=== PATIENT | female | born 1930 | race Hispanic/Latino ===

== ENCOUNTER 2018-12-20 15:53 | Inpatient (IN) | payer MEDICARE, BC ==
[2018-12-20 16:10] VITALS: BMI 32.3
--- NOTE | 2018-12-20 16:16 | ED PDOC ---
Arrival/HPI - General Time Seen by Provider: 12/20/18 15:58 Historian: Patient - History of Present Illness Narrative History of Present Illness (Text): 12/20/18 16:13 88 year old female, whose past medical history includes htn and leukocytosis presents to the ED with left sided chest pain, onset approximately 1pm today, onset while at rest, non radiating. Patient states she not experienced this pain before. Pain associated with nausea and shortness of breath, no dizziness, no diaphoresis, +pleuritic and not superficial to touch. Patient states she was diagnosed with a high wbc count approximately 2 weeks ago, not given a specific diagnosis but blood work being monitored. She denies fevers, chills, headache, cough, abdominal pain, vomiting, diarrhea, back pain, neck pain, or any other complaint. Time/Duration: 1-3 hours Symptom Onset: Gradual Symptom Course: Unchanged Activities at Onset: Light Context: Home Past Medical History - Provider Review Nursing Documentation Reviewed: Yes - Infectious Disease Hx of Infectious Diseases: None - Tetanus Immunization Tetanus Immunization: Unknown - Cardiac Hx Hypertension: Yes (HIGH CHOLESTEROL) - Pulmonary Hx Asthma: Yes - Hematological/Oncological Hx Blood Disorders: Yes (CLL) - Musculoskeletal/Rheumatological Hx Falls: No - Genitourinary/Gynecological Hx Urinary Tract Infection: Yes - Psychiatric Hx Anxiety: No Hx Depression: No Hx Substance Use: No - Past Surgical History Past Surgical History: No Previous - Anesthesia Hx Anesthesia: No - Suicidal Assessment Feels Threatened In Home Enviroment: No Family/Social History - Physician Review Nursing Documentation Reviewed: Yes Family/Social History: No Known Family HX Smoking Status: Former Smoker Hx Alcohol Use: No Hx Substance Use: No Hx Substance Use Treatment: No Allergies/Home Meds Allergies/Adverse Reactions: Allergies NSAIDS (Non-Steroidal Anti-Inflamma Adverse Reaction (Verified 12/20/18 16:20) VOMITING Home Medications: Home Meds Medication Instructions Recorded Confirmed Losartan [Cozaar] 50 mg PO DAILY 12/22/18 12/22/18 amLODIPine [Norvasc] 5 mg PO DAILY 12/22/18 12/22/18 Review of Systems - Physician Review All systems were reviewed & negative as marked: Yes - Review of Systems Constitutional: absent: Fevers Respiratory: SOB. absent: Cough Cardiovascular: Chest Pain Gastrointestinal: Nausea. absent: Abdominal Pain, Diarrhea, Vomiting Genitourinary Female: absent: Dysuria Musculoskeletal: absent: Back Pain, Neck Pain Skin: absent: Rash Neurological: absent: Headache, Dizziness Endocrine: Diaphoresis Physical Exam - Physical Exam Narrative Physical Exam (Text): 12/20/18 16:22 Gen: VS reviewed, alert, well developed, well nourished, nontoxic, mild distress. ENT: normal pharynx. Eye: EOMI, PERRL. Neck: no JVD, supple, no adenopathy. CV: regular rate, regular rhythm, no rubs, no murmur, no gallops, S1, S2, pulses equal and strong. Pulm: no distress, clear to auscultation, no wheeze, no rhonchi, breath sounds equal, no rales. Abd: soft, nontender, no guarding, no rebound, no rigidity, normal bowel sounds. Ext: no edema. Skin: good color, no rash, no cyanosis. Psych: responds appropriately to questions, normal affect. Neuro: oriented x 3, CN2-12 intact grossly, motor intact, sensation intact. Vital Signs Reviewed: Yes Temperature: Afebrile Blood Pressure: Hypertensive Pulse: Tachycardic Respiratory Rate: Normal Appearance: Positive for: Well-Appearing, Non-Toxic, Comfortable Pain Distress: None Mental Status: Positive for: Alert and Oriented X 3 Medical Decision Making ED Course and Treatment: 12/20/18 16:16 Impression: 88 year old female who presents to the emergency department complaining of left sided chest pain. Plan: -- BBK -- VBG -- Labs -- Reassess and disposition Prior Visits: Notes and results from previous visits were reviewed. Progress Notes: 12/20/18 16:16 Patient seen for left lower chest pain, pleuritic in nature, will work up for ACS and PE. 12/20/18 19:15 lipase elevated, workup trajectory changed towards pancreatitis. patient has a hx of leukemia, not currently being treated, seasoner hand is dr. cunningham 12/20/18 19:[address] carter, pending CT result, final disposition. - Lab Interpretations I have reviewed the lab results: Yes - EKG Interpretation EKG Interpretation (Text): 12/20/18 16:24 EKG done at 16:01, reviewed by me, shows: NSR at 100 bpm with normal QRS, normal axis, no acute ST/T wave abnormality Interpreted by ED Physician: Yes Type: 12 lead EKG - Scribe Statement The provider has reviewed the documentation as recorded by the Cuauhtemoc Mack Provider Scribe Attestation: All medical record entries made by the Bellibe were at my direction and personally dictated by me. I have reviewed the chart and agree that the record accurately reflects my personal performance of the history, physical exam, medical decision making, and the department course for this patient. I have also personally directed, reviewed, and agree with the discharge instructions and disposition. Disposition/Present on Arrival - Present on Arrival Any Indicators Present on Arrival: No History of DVT/PE: No History of Uncontrolled Diabetes: No Urinary Catheter: No History Surgical Site Infection Following: None - Disposition Have Diagnosis and Disposition been Completed?: Yes Diagnosis: Pancreatitis, Gallstone Disposition: HOSPITALIZED Disposition Time: 18:48 (not actual) Condition: STABLE
[2018-12-20 18:34] LABS: ALB/GLOB RATIO 1.5 (1.1-1.8); ALT/SGPT 28 U/L (7-56); AST/SGOT 97 U/L (14-36); BLOOD UREA NITROGEN 23 mg/dL (7-21); CALCIUM 9.2 mg/dL (8.4-10.5); GFR NON-AFRICAN AMERICAN > 60; HDL CHOLESTEROL 40 mg/dL (29-60)
[2018-12-20 18:45] LABS: LDL CHOLESTEROL 149 mg/dL (0-129)
[2018-12-20 18:48] LABS: TROPONIN I < 0.01 ng/mL
[2018-12-20] MEDS ORDERED: Iohexol 350 MG/100 ML VIAL ONE (18:48)
[2018-12-20 18:49] LABS: LIPASE 12861 U/L (23-300)
[2018-12-20 18:52] LABS: VENOUS BLOOD GAS BASE EXCESS 0.1 mmol/L (0.0-2.0); VENOUS BLOOD GAS PO2 252 mm/Hg (30-55); VENOUS BLOOD PH 7.44 (7.32-7.43)
[2018-12-20 19:04] LABS: INR 1.05; PARTIAL THROMBOPLASTIN TIME 27.7 Seconds (26.9-38.3); PROTHROMBIN TIME 11.6 SECONDS (9.4-12.5)
--- NOTE | 2018-12-20 19:19 | ED PDOC ---
Physical Exam Vital Signs Temp Pulse Resp BP Pulse Ox 12/20/18 18:36 95 H 20 143/66 98 12/20/18 15:53 98 F 100 H 18 151/73 H 98 Medical Decision Making ED Course and Treatment: 12/20/18 19:[address] Rutledge with patient pending CT a/p and reevaluation. Brief HPI:The patient originally presented with left sided chest pain, but was discovered to have an elevated lipase with concern for pancreatitis. She was recently diagnosed with leukemia, but has not started chemotherapy as of late. Physicians: Dr. Montiel(PCP), Dr. Breen(oncologist) 12/20/18 20:30 Patient returned from US with patient denying any somatic complaints at this time. She and her daughter understand she will be staying in the hospital for further evaluation. 12/20/18 20:37 Spoke to histotechnician who states he visualized gallstones as well as a pancreatic cyst on abdominal US. Pending CT results. 12/20/18 21:23 CT scan reveals gallstones and pancreatic lymph node noted on CT with no evidence of inflammation about the pancreas. Results discussed with patient and her daughter who is amenable to staying in the hospital for further observation. Spoke to medical reviewer who is aware of patient and will go evaluate patient. Awaiting call back from Dr. Cooley(house staff). 12/20/18 21:[address] Cooley who will evaluate patient. - Lab Interpretations Lab Results: pO2 252 mm/Hg (30-55) H 12/20/18 18:40 VBG pH 7.44 (7.32-7.43) H 12/20/18 18:40 VBG pCO2 35.0 (40-60) L 12/20/18 18:40 VBG HCO3 23.8 mmol/l (21-28) 12/20/18 18:40 VBG Total CO2 24.9 mmol.L (22-28) 12/20/18 18:40 VBG O2 Sat (Calc) 100.3 % (40-65) H 12/20/18 18:40 VBG Base Excess 0.1 mmol/L (0.0-2.0) 12/20/18 18:40 VBG Potassium 4.7 mmol/L (3.6-5.2) 12/20/18 18:40 Sodium 142.0 mmol/L (132-148) 12/20/18 18:40 Chloride 110.0 mmol/L (98-107) H 12/20/18 18:40 Glucose 134 mg/dl (65-105) H 12/20/18 18:40 Lactate 1.0 mmol/L (0.7-2.1) 12/20/18 18:40 FiO2 21.0 % 12/20/18 18:40 PT 11.6 SECONDS (9.4-12.5) 12/20/18 18:40 INR 1.05 12/20/18 18:40 APTT 27.7 Seconds (26.9-38.3) 12/20/18 18:40 Troponin I < 0.01 ng/mL 12/20/18 18:00 Total Bilirubin 1.2 mg/dL (0.2-1.3) 12/20/18 18:00 AST 97 U/L (14-36) H 12/20/18 18:00 ALT 28 U/L (7-56) 12/20/18 18:00 Alkaline Phosphatase 119 U/L (38-126) 12/20/18 18:00 Total Protein 6.7 g/dL (5.8-8.3) 12/20/18 18:00 Albumin 4.0 g/dL (3.0-4.8) 12/20/18 18:00 Globulin 2.7 gm/dL 12/20/18 18:00 Albumin/Globulin Ratio 1.5 (1.1-1.8) 12/20/18 18:00 Lipase 86089 U/L (23-300) H 12/20/18 18:00 12/20/18 18:00 Lab Results 12/20/18 18:40: pO2 252 H, VBG pH 7.44 H, VBG pCO2 35.0 L, VBG HCO3 23.8, VBG Total CO2 24.9, VBG O2 Sat (Calc) 100.3 H, VBG Base Excess 0.1, VBG Potassium 4.7, Glucose 134 H, Lactate 1.0, FiO2 21.0, Sodium 142.0, Chloride 110.0 H, Venous Blood Potassium 4.7 12/20/18 18:40: PT 11.6, INR 1.05, APTT 27.7 12/20/18 18:00: Sodium 141, Potassium 5.4 H, Chloride 109 H, Carbon Dioxide 27, Anion Gap 11, BUN 23 H, Creatinine 0.8, Est GFR ( Amer) > 60, Est GFR (Non-Af Amer) > 60, Random Glucose 133 H, Calcium 9.2, Total Bilirubin 1.2, AST 97 H, ALT 28, Alkaline Phosphatase 119, Troponin I < 0.01, Total Protein 6.7, Albumin 4.0, Globulin 2.7, Albumin/Globulin Ratio 1.5, Triglycerides 125, Cholesterol 225 H, LDL Cholesterol Direct 149 H, HDL Cholesterol 40, Lipase 48882 H I have reviewed the lab results: Yes - RAD Interpretation Narrative RAD Interpretations (Text): US Abdomen Complete Electronically signed on Dec 20, 2018 8:37:08 PM EST by: Chris Torres M.D. Impression 1. Fatty liver. 2. Gallstones. 3. Enlarged peripancreatic lymph node. Follow up with CT, pancreatic protocol is recommended. Radiology Orders: 12/20/18 19:10 ABDOMEN & PELVIS [ABD & PELVIS IV CONTRAST ONLY] [CT] Stat 12/20/18 19:12 GALLBLADDER & PANCREAS [US] Stat Hide Paster: Radiologist Disposition/Present on Arrival - Present on Arrival Any Indicators Present on Arrival: No History of DVT/PE: No History of Uncontrolled Diabetes: No Urinary Catheter: No History of Decub. Ulcer: No History Surgical Site Infection Following: None - Disposition Have Diagnosis and Disposition been Completed?: Yes Diagnosis: Pancreatitis, Gallstone Disposition Time: 21:58 Patient Plan: Admission Patient Problems: Current Active Problems Problem Status Onset Pancreatitis Acute Gallstone Acute Condition: STABLE
[2018-12-20 19:31] LABS: BASO # 0.28 K/mm3 (0.0-2.0); BASO % 0.2 % (0.0-3.0); EOS # 0.3 (0.0-0.7); EOS % 0.3 % (1.5-5.0); HEMOGLOBIN 12.5 g/dL (12.0-16.0); LYMPH # 110.2 (1.2-3.4); LYMPH % 93.9 % (22.0-35.0); MEAN CELL VOLUME 89.1 fl (80.0-105.0); MEAN CORPUSCULAR HEMOGLOBIN 27.7 pg (25.0-35.0); MEAN CORPUSCULAR HGB CONC 31.1 g/dl (31.0-37.0); MEAN PLATELET VOLUME 11.1 fl (7.0-11.0); MONO # 1.5 (0.1-0.6); MONO % 1.3 % (1.0-6.0); PLATELET COUNT 126 10^3/uL (120.0-450.0); RBC 4.51 10^6/uL (3.5-6.1); RED CELL DISTRIBUTION WIDTH 14.8 % (11.5-14.5)
[2018-12-20 19:48] LABS: WHITE BLOOD COUNT 117.3 10^3/uL (4.5-11.0)
[2018-12-20 19:51] LABS: ATYPICAL LYMPHOCYTE 2 % (0.0-0.0); LYMPHOCYTE 86 % (22.0-35.0); MONOCYTE 5 % (1.0-6.0); NEUTROPHIL 7 % (50.0-70.0)
[2018-12-20 19:52] LABS: PLATELET ESTIMATE NORMAL (NORMAL); SMUDGE CELLS PRESENT
[2018-12-20] MEDS ORDERED: Sodium Chloride 0.9% 1,000 ML IV STA (20:31)
[2018-12-20] MEDS ORDERED: Insulin Regular 1 UNITS/0.01 ML ML SC STA (21:08)
[2018-12-20] MEDS ORDERED: Dextrose 50% SYRINGE Inj (50 ml) IVP STA (21:08)
[2018-12-20] MEDS ORDERED: Albuterol-Ipratrop 3 mg / 0.5 (3 ml) UD IH PRN (21:13)
--- NOTE | 2018-12-20 21:13 | CP.PCM.HP ---
History of Present Illness - History of Present Illness History of Present Illness: Juanjose Dietz, PGY1 H&P for Dr. Cooley cc: "left sided chest pain" Patient is a 88 year old female with PMHx HTN, CLL (recently diagnosed, not on chemo), COPD, Depression, HLD who presented to the ED with left sided chest pain at 1 pm today. In the ED, Vitals: Temp 98, HR 100, BP 151/73, RR 18, SaO2 98% (room air). Medical team evaluated the patient. She has left sided chest pain underneath her breast with radiation to the back. She says that the pain started at rest, she was not exerting herself. She also had associated shortness of breath. However, upon arriving to the ED she says that her chest pain and shortness of breath has improved. Denies headache, fever, chills, nausea, vomiting, diarrhea, vision changes, bowel/bladder changes, numbness/tingling of the extremities. She said that she was recently diagnosed with CLL but is not on any chemotherapy. She denies any cardiac history. She has had a stress test in the past that was normal. Denies ever having an echocardiogram or a cardiac cath done before. She has no prior history of pancreatitis. A full 12 point ROS was conducted and unremarkable except as stated above. PMD: Dr. Montiel(PCP) Heme/Onc: Dr. Breen Ordnance Equipment Worker: Dr. Santo PMHx: HTN, CLL (recently diagnosed, not on chemo), COPD, Depression, HLD PSHx: none Meds: see MAR Allergies: NSAIDs SocialHx: former smoker for 20 years. Denies EtOH use. Denies illicit drug use. FamHx: brother has hx of lung cancer (). Sister has hx of ALS (). Present on Admission - Present on Admission Any Indicators Present on Admission: No Review of Systems - Review of Systems All systems: reviewed and no additional remarkable complaints except (as per HPI) Past Patient History - Infectious Disease Hx of Infectious Diseases: None - Tetanus Immunizations Tetanus Immunization: Unknown - Past Social History Smoking Status: Former Smoker - CARDIAC Hx Hypertension: Yes (HIGH CHOLESTEROL) - PULMONARY Hx Asthma: Yes - HEMATOLOGICAL/ONCOLOGICAL Hx Blood Disorders: Yes (CLL) - MUSCULOSKELETAL/RHEUMATOLOGICAL Hx Falls: No - GENITOURINARY/GYNECOLOGICAL Hx Urinary Tract Infection: Yes - PSYCHIATRIC Hx Anxiety: No Hx Depression: No Hx Substance Use: No - ANESTHESIA Hx Anesthesia: No Meds Allergies/Adverse Reactions: Allergies Allergy/AdvReac Type Severity Reaction Status Date / Time NSAIDS (Non-Steroidal AdvReac VOMITING Verified 12/20/18 16:20 Anti-Inflamma Physical Exam - Constitutional Appears: No Acute Distress Additional comments: No jaundice - Head Exam Head Exam: ATRAUMATIC, NORMAL INSPECTION, NORMOCEPHALIC - Eye Exam Eye Exam: EOMI, Normal appearance. absent: Scleral icterus Pupil Exam: NORMAL ACCOMODATION, PERRL - ENT Exam ENT Exam: Mucous Membranes Moist - Respiratory Exam Respiratory Exam: Clear to Auscultation Bilateral. absent: Accessory Muscle Use, Chest Wall Tenderness, Rales, Rhonchi, Wheezes, Respiratory Distress - Cardiovascular Exam Cardiovascular Exam: RRR, +S1, +S2 - GI/Abdominal Exam GI & Abdominal Exam: Normal Bowel Sounds, Organomegaly (Splenomegaly appreciated ), Soft. absent: Guarding, Rebound, Rigid, Tenderness - Extremities Exam Extremities exam: Positive for: full ROM, normal capillary refill, normal inspection, pedal pulses present. Negative for: calf tenderness, joint swelling, pedal edema, tenderness - Neurological Exam Neurological exam: Alert, CN II-XII Intact, Normal Gait, Oriented x3, Reflexes Normal - Psychiatric Exam Psychiatric exam: Normal Affect, Normal Mood - Skin Skin Exam: Dry, Intact, Normal Color, Warm Results - Vital Signs Recent Vital Signs: Last Vital Signs Temp 98 F 12/20/18 15:53 Pulse 95 H 12/20/18 18:36 Resp 20 12/20/18 18:36 BP 143/66 12/20/18 18:36 Pulse Ox 98 12/20/18 18:36 - Labs Result Diagrams: 12/20/18 19:00 12/20/18 18:00 Labs: Laboratory Results - last 24 hr 12/20/18 12/20/18 12/20/18 18:00 18:40 18:40 WBC RBC Hgb Hct MCV MCH MCHC RDW Plt Count MPV Neut % (Auto) Lymph % (Auto) [place] % (Auto) Eos % (Auto) Baso % (Auto) Lymph # (Auto) [place] # (Auto) Eos # (Auto) Baso # (Auto) Absolute Neuts (auto) Neutrophils % (Manual) Lymphocytes % (Manual) Atypical Lymphs % Monocytes % (Manual) Smudge Cells Platelet Evaluation PT 11.6 INR 1.05 APTT 27.7 pO2 252 H VBG pH 7.44 H VBG pCO2 35.0 L VBG HCO3 23.8 VBG Total CO2 24.9 VBG O2 Sat (Calc) 100.3 H VBG Base Excess 0.1 VBG Potassium 4.7 Glucose 134 H Lactate 1.0 FiO2 21.0 Sodium 141 142.0 Potassium 5.4 H Chloride 109 H 110.0 H Carbon Dioxide 27 Anion Gap 11 BUN 23 H Creatinine 0.8 Est GFR ( Amer) > 60 Est GFR (Non-Af Amer) > 60 Random Glucose 133 H Calcium 9.2 Total Bilirubin 1.2 AST 97 H ALT 28 Alkaline Phosphatase 119 Troponin I < 0.01 Total Protein 6.7 Albumin 4.0 Globulin 2.7 Albumin/Globulin Ratio 1.5 Triglycerides 125 Cholesterol 225 H LDL Cholesterol Direct 149 H HDL Cholesterol 40 Lipase 01838 H Venous Blood Potassium 4.7 Blood Type Blood Type Confirm Antibody Screen BBK History Checked 12/20/18 12/20/18 12/20/18 18:50 19:00 20:02 WBC 117.3 H* RBC 4.51 Hgb 12.5 Hct 40.2 MCV 89.1 MCH 27.7 MCHC 31.1 RDW 14.8 H Plt Count 126 MPV 11.1 H Neut % (Auto) 4.3 L Lymph % (Auto) 93.9 H [place] % (Auto) 1.3 Eos % (Auto) 0.3 L Baso % (Auto) 0.2 Lymph # (Auto) 110.2 H [place] # (Auto) 1.5 H Eos # (Auto) 0.3 Baso # (Auto) 0.28 Absolute Neuts (auto) 5.04 Neutrophils % (Manual) 7 L Lymphocytes % (Manual) 86 H Atypical Lymphs % 2 H Monocytes % (Manual) 5 Smudge Cells Present Platelet Evaluation Normal PT INR APTT pO2 VBG pH VBG pCO2 VBG HCO3 VBG Total CO2 VBG O2 Sat (Calc) VBG Base Excess VBG Potassium Glucose Lactate FiO2 Sodium Potassium Chloride Carbon Dioxide Anion Gap BUN Creatinine Est GFR ( Amer) Est GFR (Non-Af Amer) Random Glucose Calcium Total Bilirubin AST ALT Alkaline Phosphatase Troponin I Total Protein Albumin Globulin Albumin/Globulin Ratio Triglycerides Cholesterol LDL Cholesterol Direct HDL Cholesterol Lipase Venous Blood Potassium Blood Type B POSITIVE Blood Type Confirm B POSITIVE Antibody Screen Negative BBK History Checked No verified bt Assessment & Plan - Assessment and Plan (Free Text) Assessment: Patient is a 88 year old female with PMHx HTN, CLL (recently diagnosed, not on chemo), COPD, Depression, HLD who presented to the ED with left sided chest pain. Patient will be admitted for Atypical Chest Pain - r/o ACS, Pancreatitis 2/2 Gallstones vs Pancreatic Cancer, and Hyperkalemia. Plan: Atypical Chest Pain - r/o ACS - Less suspicious for ischemic origin; likely related to pancreatitis - trop negative x1; trend serial trops - EKG: NSR at [address] or T wave changes. - TSH - Hgb A1c - Lipid Panel - ASA 81mg - echo Pancreatitis 2/2 Gallstones vs Pancreatic Cancer - IVF 1/2 NS @ 150 cc/hr - NPO diet - morphine 1mg q6 prn for pain control - Advance diet as tolerated - Lipid panel does not show elevated triglycerides - EtOH level ordered - Lipase 34872 on admission - AST/ALT 97/28 on admission - Abdominal US: (prelim) gallstones and enlarged pancreatic lymph node - CT A/P: (prelim) acute pancreatitis, marked splenomegaly, periaortic and bilateral inguinal lymphadenopathy, slight hepatomegaly, extensive atherosclerosis. Hyperkalemia - K was 5.4 on admission - Insulin 10 units and amp D50 given in the ED - kayexalate administered in the ED - f/u repeat ekg - EKG: no evidence of peaked T waves - monitor potassium level Hx CLL - WBC 117; lymphocytes 110, neutrophils 7 - Heme/onc on consult (Dr. Breen) - Not on chemotherapy; CLL is newly diagnosed Hx HTN - hydralazine 10mg IVP prn - Holding PO home BP meds for now - BP 151/73 in ED Hx COPD - duonebs for episode of shortness of breath DVT ppx: lovenox Diet: NPO (strict) Dispo: Patient will be monitored on remote tele. Case was discussed and reviewed with Attending Physician, Dr. Cooley.
[2018-12-20] MEDS ORDERED: Morphine 4 mg/ml ISec IVP STA (21:26)
[2018-12-20] MEDS ORDERED: Sodium Chloride 0.45% 1,000 ML IV ONE (21:45)
[2018-12-20] MEDS ORDERED: Morphine 2 mg/ml ISec IVP PRN (21:58)
--- NOTE | 2018-12-20 22:02 | CARD ---
APPROVED REPORT Date of service: 12/20/2018 EKG Measurement Heart [id number] <Conclusion> Normal sinus rhythm Normal ECG
[2018-12-21 00:04] LABS: BLOOD UREA NITROGEN 18 mg/dL (7-21); CALCIUM 8.7 mg/dL (8.4-10.5); GFR NON-AFRICAN AMERICAN > 60
[2018-12-21 00:09] LABS: TROPONIN I < 0.01 ng/mL
[2018-12-21 07:06] LABS: BASO # 0.19 K/mm3 (0.0-2.0); BASO % 0.2 % (0.0-3.0); EOS # 0.2 (0.0-0.7); EOS % 0.2 % (1.5-5.0); LYMPH # 91.9 (1.2-3.4); LYMPH % 94.8 % (22.0-35.0); MEAN CELL VOLUME 89.4 fl (80.0-105.0); MEAN CORPUSCULAR HEMOGLOBIN 27.2 pg (25.0-35.0); MEAN CORPUSCULAR HGB CONC 30.5 g/dl (31.0-37.0); MEAN PLATELET VOLUME 10.2 fl (7.0-11.0); MONO # 1.3 (0.1-0.6); MONO % 1.3 % (1.0-6.0); PLATELET COUNT 121 10^3/uL (120.0-450.0); RBC 4.04 10^6/uL (3.5-6.1); RED CELL DISTRIBUTION WIDTH 14.8 % (11.5-14.5)
[2018-12-21 07:24] LABS: WHITE BLOOD COUNT 96.9 10^3/uL (4.5-11.0)
[2018-12-21 07:27] LABS: TROPONIN I < 0.01 ng/mL
[2018-12-21 07:28] LABS: ALB/GLOB RATIO 1.5 (1.1-1.8); ALBUMIN 3.7 g/dL (3.0-4.8); ALT/SGPT 27 U/L (7-56); AST/SGOT 55 U/L (14-36); BLOOD UREA NITROGEN 15 mg/dL (7-21); CALCIUM 8.9 mg/dL (8.4-10.5); GFR NON-AFRICAN AMERICAN > 60
[2018-12-21] MEDS: Sodium Chloride 0.9% 1,000 ML IV SCH ×2 (08:18→18:27)
[2018-12-21] MEDS: Albuterol-Ipratrop 3 mg / 0.5 (3 ml) UD IH SCH ×5 (08:27→23:15)
--- NOTE | 2018-12-21 08:49 | CP.PCM.CON ---
History of Present Illness - History of Present Illness History of Present Illness: Surgery progress note, Dr Ramires 88 y/o female with PMH HTN, CLL, COPD, Depression, HLD presented to the ED with LUQ abdominal pain x1 day. Pain is intermittent, moderate, sharp, related to meal, radiates to the back, no exacerbating or alleviating factors. Patient had similar symptoms in the past but this incident is more severe.Denies N/V/D, weight changes, fever, chills, malaise, bowel/bladder changes, numbness/tingling of the extremities ROS reviewed with pertinent positives as above PMHx: as above PSHx: none Meds: see MAR All: NSAIDs SH: former smoker for 20 years. Denies EtOH, illicit drug use. FamH: brother; h/o lung cancer (). Sister; h/o ALS () Past Patient History - Infectious Disease Hx of Infectious Diseases: None - Tetanus Immunizations Tetanus Immunization: Unknown - Past Social History Smoking Status: Former Smoker - CARDIAC Hx Cardiac Disorders: No Hx Angina: No Hx Cardia Arrhythmia: No Hx Circulatory Problems: No Hx Congestive Heart Failure: No Hx Heart Transplant: No Hx Hypercholesterolemia: No Hx Hypertension: Yes Hx Internal Defibrillator: No Hx Mitral Valve Prolapse: No Hx Pacemaker: No Hx Peripheral Edema: No Hx Peripheral Vascular Disease: No - PULMONARY Hx Respiratory Disorders: No Hx Asthma: No Hx Bronchitis: No Hx Chronic Obstructive Pulmonary Disease (COPD): Yes Hx Emphysema: No Hx Pneumonia: No Hx Respiratory Aspiration: No Hx Respiratory Tract Infection: No Hx Sleep Apnea: No Hx Tuberculosis: No - HEMATOLOGICAL/ONCOLOGICAL Hx Blood Disorders: Yes - MUSCULOSKELETAL/RHEUMATOLOGICAL Hx Falls: No - GASTROINTESTINAL Hx Pancreatitis: Yes - GENITOURINARY/GYNECOLOGICAL Hx Urinary Tract Infection: Yes - PSYCHIATRIC Hx Anxiety: No Hx Depression: No Hx Substance Use: No - SURGICAL HISTORY Hx Cardiac Catheterization: No Hx Coronary Stent: No - ANESTHESIA Hx Anesthesia: No Meds Allergies/Adverse Reactions: Allergies Allergy/AdvReac Type Severity Reaction Status Date / Time NSAIDS (Non-Steroidal AdvReac VOMITING Verified 12/20/18 16:20 Anti-Inflamma - Medications Medications: Current Medications Albuterol/Ipratropium (Duoneb 3 Mg/0.5 Mg (3 Ml) Ud) 3 ml IH [id number] [facility] Last Admin: 02/08/19 08:27 Dose: 3 ml Albuterol/Ipratropium (Duoneb 3 Mg/0.5 Mg (3 Ml) Ud) 3 ml IH Q2H PRN PRN Reason: Shortness of Breath Enoxaparin Sodium (Lovenox) 40 mg SC DAILY [facility]; Protocol Hydralazine HCl (Apresoline) 10 mg IVP Q6 PRN PRN Reason: Systolic Blood Pressure Sodium Chloride (Sodium Chloride 0.9%) 1,000 mls @ 100 mls/hr IV .Q10H [facility] Last Admin: 12/21/18 08:18 Dose: 100 mls/hr Morphine Sulfate (Morphine) 1 mg IVP Q6H PRN PRN Reason: Pain, moderate (4-7) Physical Exam - Constitutional Appears: Well, No Acute Distress - Head Exam Head Exam: ATRAUMATIC, NORMAL INSPECTION, NORMOCEPHALIC - Eye Exam Eye Exam: EOMI, Normal appearance, PERRL Pupil Exam: NORMAL ACCOMODATION, PERRL - ENT Exam ENT Exam: Mucous Membranes Moist, Normal Exam - Respiratory Exam Respiratory Exam: Clear to Auscultation Bilateral, NORMAL BREATHING PATTERN - Cardiovascular Exam Cardiovascular Exam: REGULAR RHYTHM - GI/Abdominal Exam GI & Abdominal Exam: Normal Bowel Sounds, Soft, Tenderness (mild tender to palpate epigastiric area). absent: Distended, Guarding, Hernia, Organomegaly, Pulsatile Mass - Extremities Exam Extremities exam: Positive for: normal inspection - Neurological Exam Neurological exam: Alert, Oriented x3 - Psychiatric Exam Psychiatric exam: Normal Affect, Normal Mood - Skin Skin Exam: Dry, Intact, Normal Color, Warm Results - Vital Signs Recent Vital Signs: Last Vital Signs Temp 97.6 F 12/21/18 06:00 Pulse 81 12/21/18 08:31 Resp 16 12/21/18 08:09 BP 153/76 H 12/21/18 08:09 Pulse Ox 95 12/21/18 06:00 - Labs Result Diagrams: 12/21/18 07:00 12/21/18 07:00 Labs: Laboratory Results - last 24 hr 12/20/18 12/20/18 12/20/18 18:00 18:40 18:40 WBC RBC Hgb Hct MCV MCH MCHC RDW Plt Count MPV Neut % (Auto) Lymph % (Auto) [place] % (Auto) Eos % (Auto) Baso % (Auto) Lymph # (Auto) [place] # (Auto) Eos # (Auto) Baso # (Auto) Absolute Neuts (auto) Neutrophils % (Manual) Lymphocytes % (Manual) Atypical Lymphs % Monocytes % (Manual) Differential Comment Smudge Cells Platelet Evaluation PT 11.6 INR 1.05 APTT 27.7 pO2 252 H VBG pH 7.44 H VBG pCO2 35.0 L VBG HCO3 23.8 VBG Total CO2 24.9 VBG O2 Sat (Calc) 100.3 H VBG Base Excess 0.1 VBG Potassium 4.7 Glucose 134 H Lactate 1.0 FiO2 21.0 Sodium 141 142.0 Potassium 5.4 H Chloride 109 H 110.0 H Carbon Dioxide 27 Anion Gap 11 BUN 23 H Creatinine 0.8 Est GFR ( Amer) > 60 Est GFR (Non-Af Amer) > 60 Random Glucose 133 H Uric Acid Calcium 9.2 Phosphorus Magnesium Total Bilirubin 1.2 AST 97 H ALT 28 Alkaline Phosphatase 119 Lactate Dehydrogenase Total Creatine Kinase Troponin I < 0.01 Total Protein 6.7 Albumin 4.0 Globulin 2.7 Albumin/Globulin Ratio 1.5 Triglycerides 125 Cholesterol 225 H LDL Cholesterol Direct 149 H HDL Cholesterol 40 Lipase 58327 H TSH 3rd Generation Venous Blood Potassium 4.7 Alcohol, Quantitative Blood Type Blood Type Confirm Antibody Screen BBK History Checked 12/20/18 12/20/18 12/20/18 18:50 19:00 20:02 WBC 117.3 H* RBC 4.51 Hgb 12.5 Hct 40.2 MCV 89.1 MCH 27.7 MCHC 31.1 RDW 14.8 H Plt Count 126 MPV 11.1 H Neut % (Auto) 4.3 L Lymph % (Auto) 93.9 H [place] % (Auto) 1.3 Eos % (Auto) 0.3 L Baso % (Auto) 0.2 Lymph # (Auto) 110.2 H [place] # (Auto) 1.5 H Eos # (Auto) 0.3 Baso # (Auto) 0.28 Absolute Neuts (auto) 5.04 Neutrophils % (Manual) 7 L Lymphocytes % (Manual) 86 H Atypical Lymphs % 2 H Monocytes % (Manual) 5 Differential Comment Smudge Cells Present Platelet Evaluation Normal PT INR APTT pO2 VBG pH VBG pCO2 VBG HCO3 VBG Total CO2 VBG O2 Sat (Calc) VBG Base Excess VBG Potassium Glucose Lactate FiO2 Sodium Potassium Chloride Carbon Dioxide Anion Gap BUN Creatinine Est GFR ( Amer) Est GFR (Non-Af Amer) Random Glucose Uric Acid Calcium Phosphorus Magnesium Total Bilirubin AST ALT Alkaline Phosphatase Lactate Dehydrogenase Total Creatine Kinase Troponin I Total Protein Albumin Globulin Albumin/Globulin Ratio Triglycerides Cholesterol LDL Cholesterol Direct HDL Cholesterol Lipase TSH 3rd Generation Venous Blood Potassium Alcohol, Quantitative Blood Type B POSITIVE Blood Type Confirm B POSITIVE Antibody Screen Negative BBK History Checked No verified bt 12/20/18 12/20/18 12/21/18 23:20 23:20 07:00 WBC 96.9 H* RBC 4.04 Hgb 11.0 L Hct 36.1 MCV 89.4 MCH 27.2 MCHC 30.5 L RDW 14.8 H Plt Count 121 MPV 10.2 Neut % (Auto) 3.5 L Lymph % (Auto) 94.8 H [place] % (Auto) 1.3 Eos % (Auto) 0.2 L Baso % (Auto) 0.2 Lymph # (Auto) 91.9 H [place] # (Auto) 1.3 H Eos # (Auto) 0.2 Baso # (Auto) 0.19 Absolute Neuts (auto) 3.36 Neutrophils % (Manual) Lymphocytes % (Manual) Atypical Lymphs % Monocytes % (Manual) Differential Comment See pathology report Smudge Cells Platelet Evaluation PT INR APTT pO2 VBG pH VBG pCO2 VBG HCO3 VBG Total CO2 VBG O2 Sat (Calc) VBG Base Excess VBG Potassium Glucose Lactate FiO2 Sodium 141 Potassium 4.5 Chloride 110 H Carbon Dioxide 27 Anion Gap 8 L BUN 18 Creatinine 0.7 Est GFR ( Amer) > 60 Est GFR (Non-Af Amer) > 60 Random Glucose 72 Uric Acid Calcium 8.7 Phosphorus Magnesium Total Bilirubin AST ALT Alkaline Phosphatase Lactate Dehydrogenase 450 Total Creatine Kinase < 20 L Troponin I < 0.01 Total Protein Albumin Globulin Albumin/Globulin Ratio Triglycerides Cholesterol LDL Cholesterol Direct HDL Cholesterol Lipase TSH 3rd Generation 0.75 Venous Blood Potassium Alcohol, Quantitative < 10 Blood Type Blood Type Confirm Antibody Screen BBK History Checked 12/21/18 12/21/18 07:00 08:00 WBC RBC Hgb Hct MCV MCH MCHC RDW Plt Count MPV Neut % (Auto) Lymph % (Auto) [place] % (Auto) Eos % (Auto) Baso % (Auto) Lymph # (Auto) [place] # (Auto) Eos # (Auto) Baso # (Auto) Absolute Neuts (auto) Neutrophils % (Manual) Lymphocytes % (Manual) Atypical Lymphs % Monocytes % (Manual) Differential Comment Smudge Cells Platelet Evaluation PT INR APTT pO2 VBG pH VBG pCO2 VBG HCO3 VBG Total CO2 VBG O2 Sat (Calc) VBG Base Excess VBG Potassium Glucose Lactate FiO2 Sodium 141 Potassium 4.4 Chloride 110 H Carbon Dioxide 26 Anion Gap 9 L BUN 15 Creatinine 0.6 L Est GFR ( Amer) > 60 Est GFR (Non-Af Amer) > 60 Random Glucose 95 Uric Acid 5.9 Calcium 8.9 Phosphorus 4.0 Magnesium 2.0 Total Bilirubin 1.2 AST 55 H D ALT 27 Alkaline Phosphatase 114 Lactate Dehydrogenase 477 Total Creatine Kinase < 20 L Troponin I < 0.01 Total Protein 6.2 Albumin 3.7 Globulin 2.5 Albumin/Globulin Ratio 1.5 Triglycerides Cholesterol LDL Cholesterol Direct HDL Cholesterol Lipase TSH 3rd Generation Venous Blood Potassium Alcohol, Quantitative Blood Type Blood Type Confirm Antibody Screen BBK History Checked Assessment & Plan - Assessment and Plan (Free Text) Assessment: 88 y/o female admitted for abdominal pain. U/S shows cholelithiasis and p ancreatitis on CT A/P CLL HTN, HLD COPD Plan: -patient is hemodynamically stable, pain resolved, normal LFT/ALP, elevate lipase. Likely gallstone pancreatitis -clear liquid diet -due to clinical picture, patient's age and apprehension, no surgical intervention at the time -outpatient f/u for possible elective cholecystectomy -continue management per primary team -further recs per surgical attending Dr. Ike Rebolledo DO
--- NOTE | 2018-12-21 09:31 | CT ---
Date of service: 12/20/2018 PROCEDURE: CT Abdomen and Pelvis with contrast HISTORY: PANCREATITIS, hx leukemia COMPARISON: 12/30/2014 TECHNIQUE: Intravenous contrast dose: 100 cc Omnipaque 350 Radiation dose: Total exam DLP = 887.44 mGy-cm. This CT exam was performed using one or more of the following dose reduction techniques: Automated exposure control, adjustment of the mA and/or kV according to patient size, and/or use of iterative reconstruction technique. FINDINGS: LOWER THORAX: Partially calcified mass right lower lobe, a finding identified previously the overall appearance suggests benign etiologies such as hamartoma. LIVER: Unremarkable. No gross lesion or ductal dilatation. GALLBLADDER AND BILE DUCTS: Unremarkable. PANCREAS: Inflammatory changes limited to the head of the pancreas consistent with acute pancreatitis. No evidence of necrotizing pancreatitis. Mildly atrophic change identified in the unaffected portion primarily body and tail. The pancreas was atrophic on the prior study. SPLEEN: Progressive splenomegaly. On the prior study the spleen measures 4.1 x 11.0 cm. Currently the spleen measures 7.4 x 15.4 cm. ADRENALS: Unremarkable. No mass. KIDNEYS AND URETERS: Unremarkable. No hydronephrosis. No solid mass. VASCULATURE: Unremarkable. No aortic aneurysm. Atherosclerotic calcification and mural plaque present. Findings are seen throughout the aorta BOWEL: Unremarkable. No obstruction. No gross mural thickening. APPENDIX: Normal appendix. PERITONEUM: Unremarkable. No free fluid. No free air. LYMPH NODES: Left obturator mass, external iliac lymph node chains 2 x 3.4 cm. This is increased in size, previously measuring 1.3 x 2.7 cm. Upper abdominal enlarged lymph nodes interposed between the lesser curve and the left lobe of the liver have also increased in size and number. Additional smaller lymph nodes noted in internal and external iliac chains,, inguinal regions bilaterally similar size common degree in distribution. BLADDER: Unremarkable. REPRODUCTIVE: Unremarkable. BONES: No acute fracture. OTHER FINDINGS: None. IMPRESSION: Evidence of acute non-necrotizing pancreatitis. Progressive splenomegaly. Increasing lymphadenopathy. Concordant findings (preliminary report) provided by [employer].
[2018-12-21] MEDS: Enoxaparin 40 mg Syringe SC SCH (10:12)
--- NOTE | 2018-12-21 10:27 | CP.PCM.CON ---
History of Present Illness - History of Present Illness History of Present Illness: GI Consult Note for Dr. Mukherjee Reason for Consultation: Cholelithiasis, pancreatitis Patient is an 88 yo F with PMH of CLL, HTN, COPD, depression and HLD who presented to [facility] with a 1-day history of left sided chest pain. Patient states that pain had insidious onset, originated under her left breast and radiated to her back. Patient denied any alleviating or aggravating factors. Patient believed she may be having a heart attack and proceeded to the ED. ACS was ruled out as cardiac enzymes and EKG were negative. However, patient was found to have an elevated lipase and diagnosed with acute pancreatitis. Currently, patient is asymptomatic and reports pain has resolved. Patient denied CP, SOB, n/v/d, abdominal pain, fever, chills, [place], dizziness, melena, and hematochezia. PMHx: HTN, CLL , COPD, Depression, HLD PSHx: none Meds: see MAR Allergies: NSAIDs SocialHx: former smoker for 20 years. Denies EtOH use. Denies illicit drug use. FamHx: brother has hx of lung cancer (). Sister has hx of ALS (). Review of Systems - Review of Systems All systems: reviewed and no additional remarkable complaints except (12 point ROS reviewed and is negative other than what is stated in HPI.) Past Patient History - Infectious Disease Hx of Infectious Diseases: None - Tetanus Immunizations Tetanus Immunization: Unknown - Past Social History Smoking Status: Former Smoker - CARDIAC Hx Cardiac Disorders: No Hx Angina: No Hx Cardia Arrhythmia: No Hx Circulatory Problems: No Hx Congestive Heart Failure: No Hx Heart Transplant: No Hx Hypercholesterolemia: No Hx Hypertension: Yes Hx Internal Defibrillator: No Hx Mitral Valve Prolapse: No Hx Pacemaker: No Hx Peripheral Edema: No Hx Peripheral Vascular Disease: No - PULMONARY Hx Respiratory Disorders: No Hx Asthma: No Hx Bronchitis: No Hx Chronic Obstructive Pulmonary Disease (COPD): Yes Hx Emphysema: No Hx Pneumonia: No Hx Respiratory Aspiration: No Hx Respiratory Tract Infection: No Hx Sleep Apnea: No Hx Tuberculosis: No - HEMATOLOGICAL/ONCOLOGICAL Hx Blood Disorders: Yes - MUSCULOSKELETAL/RHEUMATOLOGICAL Hx Falls: No - GASTROINTESTINAL Hx Pancreatitis: Yes - GENITOURINARY/GYNECOLOGICAL Hx Urinary Tract Infection: Yes - PSYCHIATRIC Hx Anxiety: No Hx Depression: No Hx Substance Use: No - SURGICAL HISTORY Hx Cardiac Catheterization: No Hx Coronary Stent: No - ANESTHESIA Hx Anesthesia: No Meds Allergies/Adverse Reactions: Allergies Allergy/AdvReac Type Severity Reaction Status Date / Time NSAIDS (Non-Steroidal AdvReac VOMITING Verified 12/20/18 16:20 Anti-Inflamma - Medications Medications: Current Medications Albuterol/Ipratropium (Duoneb 3 Mg/0.5 Mg (3 Ml) Ud) 3 ml IH [id number] [facility] Last Admin: 12/21/18 08:27 Dose: 3 ml Albuterol/Ipratropium (Duoneb 3 Mg/0.5 Mg (3 Ml) Ud) 3 ml IH Q2H PRN PRN Reason: Shortness of Breath Enoxaparin Sodium (Lovenox) 40 mg SC DAILY [facility]; Protocol Last Admin: 12/21/18 10:12 Dose: 40 mg Hydralazine HCl (Apresoline) 10 mg IVP Q6 PRN PRN Reason: Systolic Blood Pressure Sodium Chloride (Sodium Chloride 0.9%) 1,000 mls @ 100 mls/hr IV .Q10H [facility] Last Admin: 12/21/18 08:18 Dose: 100 mls/hr Morphine Sulfate (Morphine) 1 mg IVP Q6H PRN PRN Reason: Pain, moderate (4-7) Physical Exam - Constitutional Appears: No Acute Distress - Head Exam Head Exam: NORMAL INSPECTION - Eye Exam Eye Exam: Normal appearance, PERRL Pupil Exam: NORMAL ACCOMODATION - ENT Exam ENT Exam: Mucous Membranes Moist, Normal Exam - Neck Exam Neck exam: Positive for: Normal Inspection - Respiratory Exam Respiratory Exam: Clear to Auscultation Bilateral. absent: Rales, Rhonchi, Whe ezes - Cardiovascular Exam Cardiovascular Exam: REGULAR RHYTHM, RRR - GI/Abdominal Exam GI & Abdominal Exam: Normal Bowel Sounds, Soft. absent: Distended, Guarding, Mass, Rebound, Rigid, Tenderness - Back Exam Back exam: NORMAL INSPECTION - Neurological Exam Neurological exam: Alert, Oriented x3 - Skin Skin Exam: Normal Color, Warm Results - Vital Signs Recent Vital Signs: Last Vital Signs Temp 97.6 F 12/21/18 06:00 Pulse 91 H 12/21/18 09:34 Resp 16 12/21/18 08:09 BP 153/76 H 12/21/18 08:09 Pulse Ox 95 12/21/18 06:00 - Labs Result Diagrams: 12/21/18 07:00 12/21/18 07:00 Labs: Laboratory Results - last 24 hr 12/20/18 12/20/18 12/20/18 18:00 18:40 18:40 WBC RBC Hgb Hct MCV MCH MCHC RDW Plt Count MPV Neut % (Auto) Lymph % (Auto) [place] % (Auto) Eos % (Auto) Baso % (Auto) Lymph # (Auto) [place] # (Auto) Eos # (Auto) Baso # (Auto) Absolute Neuts (auto) Neutrophils % (Manual) Lymphocytes % (Manual) Atypical Lymphs % Monocytes % (Manual) Differential Comment Smudge Cells Platelet Evaluation PT 11.6 INR 1.05 APTT 27.7 pO2 252 H VBG pH 7.44 H VBG pCO2 35.0 L VBG HCO3 23.8 VBG Total CO2 24.9 VBG O2 Sat (Calc) 100.3 H VBG Base Excess 0.1 VBG Potassium 4.7 Glucose 134 H Lactate 1.0 FiO2 21.0 Sodium 141 142.0 Potassium 5.4 H Chloride 109 H 110.0 H Carbon Dioxide 27 Anion Gap 11 BUN 23 H Creatinine 0.8 Est GFR ( Amer) > 60 Est GFR (Non-Af Amer) > 60 Random Glucose 133 H Uric Acid Calcium 9.2 Phosphorus Magnesium Total Bilirubin 1.2 AST 97 H ALT 28 Alkaline Phosphatase 119 Lactate Dehydrogenase Total Creatine Kinase Troponin I < 0.01 Total Protein 6.7 Albumin 4.0 Globulin 2.7 Albumin/Globulin Ratio 1.5 Triglycerides 125 Cholesterol 225 H LDL Cholesterol Direct 149 H HDL Cholesterol 40 Lipase 16951 H TSH 3rd Generation Venous Blood Potassium 4.7 Alcohol, Quantitative Blood Type Blood Type Confirm Antibody Screen BBK History Checked 12/20/18 12/20/18 12/20/18 18:50 19:00 20:02 WBC 117.3 H* RBC 4.51 Hgb 12.5 Hct 40.2 MCV 89.1 MCH 27.7 MCHC 31.1 RDW 14.8 H Plt Count 126 MPV 11.1 H Neut % (Auto) 4.3 L Lymph % (Auto) 93.9 H [place] % (Auto) 1.3 Eos % (Auto) 0.3 L Baso % (Auto) 0.2 Lymph # (Auto) 110.2 H [place] # (Auto) 1.5 H Eos # (Auto) 0.3 Baso # (Auto) 0.28 Absolute Neuts (auto) 5.04 Neutrophils % (Manual) 7 L Lymphocytes % (Manual) 86 H Atypical Lymphs % 2 H Monocytes % (Manual) 5 Differential Comment Smudge Cells Present Platelet Evaluation Normal PT INR APTT pO2 VBG pH VBG pCO2 VBG HCO3 VBG Total CO2 VBG O2 Sat (Calc) VBG Base Excess VBG Potassium Glucose Lactate FiO2 Sodium Potassium Chloride Carbon Dioxide Anion Gap BUN Creatinine Est GFR ( Amer) Est GFR (Non-Af Amer) Random Glucose Uric Acid Calcium Phosphorus Magnesium Total Bilirubin AST ALT Alkaline Phosphatase Lactate Dehydrogenase Total Creatine Kinase Troponin I Total Protein Albumin Globulin Albumin/Globulin Ratio Triglycerides Cholesterol LDL Cholesterol Direct HDL Cholesterol Lipase TSH 3rd Generation Venous Blood Potassium Alcohol, Quantitative Blood Type B POSITIVE Blood Type Confirm B POSITIVE Antibody Screen Negative BBK History Checked No verified bt 12/20/18 12/20/18 12/21/18 23:20 23:20 07:00 WBC 96.9 H* RBC 4.04 Hgb 11.0 L Hct 36.1 MCV 89.4 MCH 27.2 MCHC 30.5 L RDW 14.8 H Plt Count 121 MPV 10.2 Neut % (Auto) 3.5 L Lymph % (Auto) 94.8 H [place] % (Auto) 1.3 Eos % (Auto) 0.2 L Baso % (Auto) 0.2 Lymph # (Auto) 91.9 H [place] # (Auto) 1.3 H Eos # (Auto) 0.2 Baso # (Auto) 0.19 Absolute Neuts (auto) 3.36 Neutrophils % (Manual) Lymphocytes % (Manual) Atypical Lymphs % Monocytes % (Manual) Differential Comment See pathology report Smudge Cells Platelet Evaluation PT INR APTT pO2 VBG pH VBG pCO2 VBG HCO3 VBG Total CO2 VBG O2 Sat (Calc) VBG Base Excess VBG Potassium Glucose Lactate FiO2 Sodium 141 Potassium 4.5 Chloride 110 H Carbon Dioxide 27 Anion Gap 8 L BUN 18 Creatinine 0.7 Est GFR ( Amer) > 60 Est GFR (Non-Af Amer) > 60 Random Glucose 72 Uric Acid Calcium 8.7 Phosphorus Magnesium Total Bilirubin AST ALT Alkaline Phosphatase Lactate Dehydrogenase 450 Total Creatine Kinase < 20 L Troponin I < 0.01 Total Protein Albumin Globulin Albumin/Globulin Ratio Triglycerides Cholesterol LDL Cholesterol Direct HDL Cholesterol Lipase TSH 3rd Generation 0.75 Venous Blood Potassium Alcohol, Quantitative < 10 Blood Type Blood Type Confirm Antibody Screen BBK History Checked 12/21/18 12/21/18 07:00 08:00 WBC RBC Hgb Hct MCV MCH MCHC RDW Plt Count MPV Neut % (Auto) Lymph % (Auto) [place] % (Auto) Eos % (Auto) Baso % (Auto) Lymph # (Auto) [place] # (Auto) Eos # (Auto) Baso # (Auto) Absolute Neuts (auto) Neutrophils % (Manual) Lymphocytes % (Manual) Atypical Lymphs % Monocytes % (Manual) Differential Comment Smudge Cells Platelet Evaluation PT INR APTT pO2 VBG pH VBG pCO2 VBG HCO3 VBG Total CO2 VBG O2 Sat (Calc) VBG Base Excess VBG Potassium Glucose Lactate FiO2 Sodium 141 Potassium 4.4 Chloride 110 H Carbon Dioxide 26 Anion Gap 9 L BUN 15 Creatinine 0.6 L Est GFR ( Amer) > 60 Est GFR (Non-Af Amer) > 60 Random Glucose 95 Uric Acid 5.9 Calcium 8.9 Phosphorus 4.0 Magnesium 2.0 Total Bilirubin 1.2 AST 55 H D ALT 27 Alkaline Phosphatase 114 Lactate Dehydrogenase 477 Total Creatine Kinase < 20 L Troponin I < 0.01 Total Protein 6.2 Albumin 3.7 Globulin 2.5 Albumin/Globulin Ratio 1.5 Triglycerides Cholesterol LDL Cholesterol Direct HDL Cholesterol Lipase TSH 3rd Generation Venous Blood Potassium Alcohol, Quantitative Blood Type Blood Type Confirm Antibody Screen BBK History Checked Assessment & Plan - Assessment and Plan (Free Text) Assessment: 88 yo F with PMH of HTN, CLL, COPD, depression, and HLD presents to [facility] for atypical chest pain. Patient was found to have acute cholecystitis. GI consulted due to gallstones found on US and enlarged pancreatitic lymph nodes. CT showed acute pancreatitis and splenomegaly. 1. Acute pancreatitis 2. Cholelithiasis 3. Possible acute cholecystitis 4. Lymphadenopathy 5. CLL Plan: - CLD, advance as tolerated - Recommend outpatient pancreatic CT for resolution of pancreatitis and to evaluated for any other lesions - Elective outpatient cholecystectomy per surgery - Further medical management per primary - For further recommendations, please see attestation. Zhou Lopez, DO PGY2
--- NOTE | 2018-12-21 12:43 | US ---
Date of service: 12/20/2018 HISTORY: pain, ?gallstones COMPARISON: 07/09/[address] abdomen and pelvis. TECHNIQUE: Sonographic evaluation of the right upper quadrant of the abdomen. FINDINGS: LIVER: Measures 14.1 x 16.6 cm in length. Hepatopedal blood flow. Fatty infiltration manifest ultrasonographically as increased echogenicity of the liver parenchyma. No mass. No intrahepatic bile duct dilatation. GALLBLADDER: Cholelithiasis. Negative study for gallbladder wall thickening, pericholecystic fluid, sonographic Allen's sign. COMMON BILE DUCT: Measures 5.6 mm. No stones. No dilatation. PANCREAS: Unremarkable as visualized. No mass. No ductal dilatation.Incidental fin and the left hepatic lobe measures 1.7 cm. Incidental finding(s): Peripancreatic lymph node interposed between the pancreas and the left hepatic lobe. This is consistent with findings on recent CT scan performed 2018 RIGHT KIDNEY: Measures 3.8 x 9.9 cm in length. Normal echogenicity. No calculus, mass, or hydronephrosis. AORTA: No aneurysmal dilatation. IVC: Unremarkable. OTHER FINDINGS: None . IMPRESSION: Cholelithiasis. Negative study for gallbladder wall thickening, pericholecystic fluid, sonographic Allen's sign. Additional benign and/or incidental findings described above. Concordant findings (preliminary report) provided by [employer] [facility].
[2018-12-21 13:22] LABS: TROPONIN I < 0.01 ng/mL
--- NOTE | 2018-12-21 14:04 | CP.PCM.PCO ---
Physician Communication Note - Physician Communication Note Physician Communication Note: Pancreatitis, NPO, IVF, repeat labs, reeval in am
--- NOTE | 2018-12-21 16:35 | CARD ---
APPROVED REPORT Date of service: 12/21/2018 EXAM: Two-dimensional and M-mode echocardiogram with Doppler and color Doppler. INDICATION Chest Pain 2D DIMENSIONS Left Atrium (2D)4.0 (1.6-4.0cm)IVSd1.3 (0.7-1.1cm) LVDd3.9 (3.9-5.9cm)PWd1.0 (0.7-1.1cm) LVDs2.7 (2.5-4.0cm)FS (%) 31.6 % LVEF (%)60.1 (>50%) M-Mode DIMENSIONS Aortic Root2.40 (2.2-3.7cm)Aortic Cusp Exc.1.90 (1.5-2.0cm) Aortic Valve AoV Peak Tpvdyvkw172.0cm/Rochelle Peak GR.16mmHg Mitral Valve MV E Zkuyhodf381.0cm/sMV A Wglirrrn014.0cm/sE/A ratio1.0 TDI E/Lateral E'0.0E/Medial E'0.0 Tricuspid Valve TR Peak Pyrbsrzj572nw/sRAP [id number] Peak Gr.35mmHg [id number] LEFT VENTRICLE The left ventricle is normal size. There is borderline concentric left ventricular hypertrophy. The left ventricular function is normal. The left ventricular ejection fraction is within the normal range. There is normal LV segmental wall motion. Transmitral Doppler flow pattern is Grade I-abnormal relaxation pattern. RIGHT VENTRICLE The right ventricle is normal size. There is normal right ventricular wall thickness. The right ventricular systolic function is normal. ATRIA The left atrium size is normal. The right atrium size is normal. AORTIC VALVE The aortic valve is mildly sclerotic. No aortic regurgitation is present. There is no aortic valvular stenosis. MITRAL VALVE The mitral valve is normal in structure. There is no mitral valve regurgitation noted. There is no mitral valve stenosis. TRICUSPID VALVE There is mild tricuspid regurgitation. There is mild to moderate pulmonary hypertension. PULMONIC VALVE There is mild pulmonic valvular regurgitation. GREAT VESSELS The aortic root is normal in size. The IVC is normal in size and collapses >50% with inspiration. <Conclusion> There is borderline concentric left ventricular hypertrophy. The left ventricular function is normal. The left ventricular ejection fraction is within the normal range. There is normal LV segmental wall motion. Transmitral Doppler flow pattern is Grade I-abnormal relaxation pattern. There is mild tricuspid regurgitation. There is mild to moderate pulmonary hypertension. There is mild pulmonic valvular regurgitation.
[2018-12-21 17:02] VITALS: O2SAT 94
--- NOTE | 2018-12-21 19:18 | CP.PCM.PN ---
<Gm Huerta - Last Filed: 12/21/18 19:08> Subjective - Date & Time of Evaluation Date of Evaluation: 12/21/18 Time of Evaluation: 12:00 - Subjective Subjective: INTERNAL MEDICINE PROGRESS NOTE FOR DR. HEENA Huerta PGY1 Pt seen and examined at bedside this am. No acute nursing events overnight. She reports epigastric pain. She is tolerating small sips of water. She otherwise denies 12 point ROS Objective - Vital Signs/Intake and Output Vital Signs (last 24 hours): Temp Pulse Resp BP Pulse Ox 97.6 F 78 18 135/67 94 L 12/21/18 17:01 12/21/18 18:00 12/21/18 17:01 12/21/18 17:01 12/21/18 17:01 - Medications Medications: Current Medications Albuterol/Ipratropium (Duoneb 3 Mg/0.5 Mg (3 Ml) Ud) 3 ml IH [id number] [facility] Last Admin: 12/21/18 15:17 Dose: 3 ml Albuterol/Ipratropium (Duoneb 3 Mg/0.5 Mg (3 Ml) Ud) 3 ml IH Q2H PRN PRN Reason: Shortness of Breath Diphenhydramine HCl (Benadryl) 25 mg PO HS PRN PRN Reason: Insomnia Enoxaparin Sodium (Lovenox) 40 mg SC DAILY [facility]; Protocol Last Admin: 12/21/18 10:12 Dose: 40 mg Hydralazine HCl (Apresoline) 10 mg IVP Q6 PRN PRN Reason: Systolic Blood Pressure Sodium Chloride (Sodium Chloride 0.9%) 1,000 mls @ 100 mls/hr IV .Q10H [facility] Last Admin: 12/21/18 18:27 Dose: Not Given Morphine Sulfate (Morphine) 1 mg IVP Q6H PRN PRN Reason: Pain, moderate (4-7) - Labs Labs: 12/21/18 07:00 12/21/18 07:00 PT 11.6 SECONDS (9.4-12.5) 12/20/18 18:40 INR 1.05 12/20/18 18:40 APTT 27.7 Seconds (26.9-38.3) 12/20/18 18:40 - Constitutional Appears: Well, Non-toxic, No Acute Distress - Head Exam Head Exam: NORMAL INSPECTION, NORMOCEPHALIC - Eye Exam Eye Exam: EOMI, Normal appearance - ENT Exam ENT Exam: Mucous Membranes Moist, Normal Exam - Neck Exam Neck Exam: Normal Inspection - Respiratory Exam Respiratory Exam: Clear to Ausculation Bilateral, NORMAL BREATHING PATTERN - Cardiovascular Exam Cardiovascular Exam: REGULAR RHYTHM, +S1, +S2 - GI/Abdominal Exam GI & Abdominal Exam: Soft, Tenderness (epigastric) - Extremities Exam Extremities Exam: Normal Inspection. absent: Calf Tenderness - Back Exam Back Exam: NORMAL INSPECTION - Neurological Exam Neurological Exam: Alert, Awake, Oriented x3 - Psychiatric Exam Psychiatric exam: Normal Affect, Normal Mood - Skin Skin Exam: Dry, Intact, Warm Assessment and Plan - Assessment and Plan (Free Text) Assessment: 88 year old female with PMHx HTN, CLL (recently diagnosed, not on chemo), COPD, Depression, HLD who presented to the ED with left sided chest pain. Patient will be admitted for Atypical Chest Pain - r/o ACS, Pancreatitis 2/2 Gallstones vs Pancreatic Cancer, and Hyperkalemia. Plan: Atypical Chest Pain Rule out acute coronary syndrome EKG: NSR at [address] or T wave changes. troponins (-) x 3 TSH wnl. A1C: 5.5. LDL: 149. Echo: LVEF wnl. mild-mod pulm HTN. mild PVR start ASA 81mg Acute Pancreatitis Lipase [id number] on admission. endorses abdominal pain Likely 2/2 Gallstones vs Pancreatic Cancer. Surgery following, likely no surgical intervention Quant ETOH: <10. Triglycerides 125 (wnl). Abd U/S: cholelithiasis. CT abd/pelvis: evidence for non-necrotizing pancreatitis. increasing lymphadenopathy continue IVF 1/2 NS @ 100 cc/hr continue liquid diet, advance as tolerated. GI following, appreciate recs morphine 1mg q6 prn for pain control Hx CLL WBC markedly elevated with 94% lymphocytes, consistent with CLL Heme/onc on consult (Dr. Breen) Not on chemotherapy Hx HTN hydralazine 10mg IVP prn Holding PO home BP meds for now Hx COPD duonebs for episode of shortness of breath DVT ppx: lovenox Case seen, examined and discussed with attending physician, Dr. Heena Huerta PGY1 <Rangasamy,Ajantha - Last Filed: 12/22/18 18:18> Objective - Vital Signs/Intake and Output Vital Signs (last 24 hours): Temp Pulse Resp BP Pulse Ox 98.3 F 98 H 19 122/65 94 L 12/22/18 12:00 12/22/18 14:00 12/22/18 12:00 12/22/18 12:00 12/22/18 06:00 Intake and Output: 12/22/18 12/22/18 06:59 18:59 Intake Total 0 Output Total 0 Balance 0 - Labs Labs: 12/22/18 07:36 12/22/18 07:36 PT 11.6 SECONDS (9.4-12.5) 12/20/18 18:40 INR 1.05 12/20/18 18:40 APTT 27.7 Seconds (26.9-38.3) 12/20/18 18:40 Attending/Attestation - Attestation I have personally seen and examined this patient.: Yes I have fully participated in the care of the patient.: Yes I have reviewed all pertinent clinical information, including history, physical exam and plan: Yes Notes (Text): 12/22/18 18:13 attending note; Patient seen and examined with the resident. Patient is alert and awake. Complaining of epigastric pain. Denies any nausea, vomiting. Denies any fevers, chills. Patient is a 88 year old female with PMHx HTN, CLL (recently diagnosed, not on chemo), COPD, Depression, HLD is admitted for upper epigastric and left sided abdominal pain. 1.acute abdominal pain; CAT scan showed acute pancreatitis. lipase is elevated a 12,861. Nothing by mouth. continue IV fluids. Zofran when necessary for nausea. GI evaluation requested. Abdominal ultrasound showed gallstones. Surgery evaluation appreciated. Outpatient elective cholecystectomy recommended. 2. History of CLL; patient with chronically elevated white counts in 100s. Patient was recently evaluated at [facility]. Currently not on any treatment multiple lymph nodes secondary to lymphoma. Case discussed with Dr. Breen in detail. Needs follow-up as outpatient. 3. Atypical chest pain/mostly radiating from the upper epigastric region. Cardiac enzymes negative. Echocardiogram without significant abnormality. 4. Hypertension; continue IV medications when necessary. Upon discharge the patient will follow-up with PMD Dr. Montiel.
[2018-12-22] MEDS: Albuterol-Ipratrop 3 mg / 0.5 (3 ml) UD IH SCH ×3 (02:41→11:31)
[2018-12-22] MEDS: Sodium Chloride 0.9% 1,000 ML IV SCH (04:43)
[2018-12-22 08:14] LABS: BASO # 0.16 K/mm3 (0.0-2.0); BASO % 0.2 % (0.0-3.0); EOS # 0.2 (0.0-0.7); EOS % 0.3 % (1.5-5.0); HEMOGLOBIN 10.7 g/dL (12.0-16.0); LYMPH # 77.6 (1.2-3.4); LYMPH % 94.8 % (22.0-35.0); MEAN CELL VOLUME 90.9 fl (80.0-105.0); MEAN CORPUSCULAR HGB CONC 29.7 g/dl (31.0-37.0); MEAN PLATELET VOLUME 10.3 fl (7.0-11.0); MONO % 1.2 % (1.0-6.0); RBC 3.96 10^6/uL (3.5-6.1)
[2018-12-22 08:45] LABS: WHITE BLOOD COUNT 81.8 10^3/uL (4.5-11.0)
[2018-12-22 08:47] LABS: ALB/GLOB RATIO 1.4 (1.1-1.8); ALBUMIN 3.7 g/dL (3.0-4.8); ALT/SGPT 22 U/L (7-56); AST/SGOT 28 U/L (14-36); BLOOD UREA NITROGEN 10 mg/dL (7-21); CALCIUM 8.9 mg/dL (8.4-10.5); GFR NON-AFRICAN AMERICAN > 60
[2018-12-22] MEDS: Enoxaparin 40 mg Syringe SC SCH (09:58)
--- NOTE | 2018-12-22 12:42 | CP.PCM.PN ---
Subjective - Date & Time of Evaluation Date of Evaluation: 12/22/18 Time of Evaluation: 12:40 - Subjective Subjective: patient is doing well, tolerating diet. Denies abdominal pain. She is requesting to go home and to discuss surgical options with her primary doctor. She has an appointment set up for this Monday. Objective - Vital Signs/Intake and Output Vital Signs (last 24 hours): Temp Pulse Resp BP Pulse Ox 98.5 F 81 18 142/52 L 94 L 12/22/18 06:00 12/22/18 10:00 12/22/18 06:00 12/22/18 06:00 12/22/18 06:00 Intake and Output: 12/22/18 12/22/18 06:59 18:59 Intake Total 0 Output Total 0 Balance 0 - Medications Medications: Current Medications Albuterol/Ipratropium (Duoneb 3 Mg/0.5 Mg (3 Ml) Ud) 3 ml IH [id number] Last Admin: 12/22/18 11:31 Dose: 3 ml Albuterol/Ipratropium (Duoneb 3 Mg/0.5 Mg (3 Ml) Ud) 3 ml IH Q2H PRN PRN Reason: Shortness of Breath Diphenhydramine HCl (Benadryl) 25 mg PO HS PRN PRN Reason: Insomnia Last Admin: 12/21/18 21:16 Dose: 25 mg Enoxaparin Sodium (Lovenox) 40 mg SC DAILY [facility]; Protocol Last Admin: 12/22/18 09:58 Dose: 40 mg Hydralazine HCl (Apresoline) 10 mg IVP Q6 PRN PRN Reason: Systolic Blood Pressure Morphine Sulfate (Morphine) 1 mg IVP Q6H PRN PRN Reason: Pain, moderate (4-7) - Labs Labs: 12/22/18 07:36 12/22/18 07:36 PT 11.6 SECONDS (9.4-12.5) 12/20/18 18:40 INR 1.05 12/20/18 18:40 APTT 27.7 Seconds (26.9-38.3) 12/20/18 18:40 - Constitutional Appears: Non-toxic, No Acute Distress - Respiratory Exam Respiratory Exam: Clear to Ausculation Bilateral, NORMAL BREATHING PATTERN - Cardiovascular Exam Cardiovascular Exam: REGULAR RHYTHM, +S1, +S2 - GI/Abdominal Exam GI & Abdominal Exam: Soft, Normal Bowel Sounds. absent: Tenderness - Extremities Exam Extremities Exam: Normal Inspection. absent: Pedal Edema - Neurological Exam Neurological Exam: Alert, Awake, Oriented x3 - Psychiatric Exam Psychiatric exam: Normal Affect, Normal Mood - Skin Skin Exam: Dry, Normal Color Assessment and Plan - Assessment and Plan (Free Text) Assessment: 88 yo F with PMH of HTN, CLL, COPD, depression, and HLD presents to [facility] for atypical chest pain. Patient was found to have acute cholecystitis. GI consulted due to gallstones found on US and enlarged pancreatitic lymph nodes. CT showed acute pancreatitis and splenomegaly. #Acute gallstone pancreatitis # Cholelithiasis # Lymphadenopathy # CLL Plan: - CLD, advance as tolerated to low fat diet. - Elective outpatient cholecystectomy per surgery - Further medical management per primary - Recommend outpatient follow up with GI, possible MRI +/- EUS to evaluated lymphadenopathy further. - She has appointment with PCP this Monday. Case discussed with Dr. Mukherjee,
[2018-12-22 13:43] VITALS: BP 122/65; PULSE 98; RESP 19; TEMP 98.3
--- NOTE | 2018-12-23 11:46 | CP.PCM.DIS ---
<Gm Huerta - Last Filed: 12/23/18 11:48> Provider - Provider Date of Admission: 12/20/18 21:40 Attending physician: Fredis Naik MD Consults: 12/20/18 21:26 Physician Consult Stat Comment: Consulting Provider: Kolton Breen Consulting Physician: Kolton Breen Reason for Consult: elevated WBC 12/20/18 23:40 Physician Consult Routine Comment: Consulting Provider: Yahaira Ramires Consulting Physician: Yahaira Ramires Reason for Consult: Gallstones on RUQ US, issa? 12/20/18 23:41 Physician Consult Routine Comment: Consulting Provider: Sung Mukherjee V Consulting Physician: Sung Mukherjee V Reason for Consult: consider gallstone pancreatitis Time Spent in preparation of Discharge (in minutes): 45 Diagnosis - Discharge Diagnosis (1) Gallstone Status: Resolved (2) Pancreatitis Status: Resolved Hospital Course - Lab Results Lab Results: Most Recent Lab Values WBC 81.8 10^3/uL (4.5-11.0) H* 12/22/18 07:36 RBC 3.96 10^6/uL (3.5-6.1) 12/22/18 07:36 Hgb 10.7 g/dL (12.0-16.0) L 12/22/18 07:36 Hct 36.0 % (36.0-48.0) 12/22/18 07:36 MCV 90.9 fl (80.0-105.0) 12/22/18 07:36 MCH 27.0 pg (25.0-35.0) 12/22/18 07:36 MCHC 29.7 g/dl (31.0-37.0) L 12/22/18 07:36 RDW 15.0 % (11.5-14.5) H 12/22/18 07:36 Plt Count 118 10^3/uL (120.0-450.0) L 12/22/18 07:36 MPV 10.3 fl (7.0-11.0) 12/22/18 07:36 Neut % (Auto) 3.5 % (50.0-68.0) L 12/22/18 07:36 Lymph % (Auto) 94.8 % (22.0-35.0) H 12/22/18 07:36 [place] % (Auto) 1.2 % (1.0-6.0) 12/22/18 07:36 Eos % (Auto) 0.3 % (1.5-5.0) L 12/22/18 07:36 Baso % (Auto) 0.2 % (0.0-3.0) 12/22/18 07:36 Lymph # (Auto) 77.6 (1.2-3.4) H 12/22/18 07:36 [place] # (Auto) 1.0 (0.1-0.6) H 12/22/18 07:36 Eos # (Auto) 0.2 (0.0-0.7) 12/22/18 07:36 Baso # (Auto) 0.16 K/mm3 (0.0-2.0) 12/22/18 07:36 Absolute Neuts (auto) 2.88 (1.4-6.5) 12/22/18 07:36 Neutrophils % (Manual) 7 % (50.0-70.0) L 12/20/18 19:00 Lymphocytes % (Manual) 86 % (22.0-35.0) H 12/20/18 19:00 Atypical Lymphs % 2 % (0.0-0.0) H 12/20/18 19:00 Monocytes % (Manual) 5 % (1.0-6.0) 12/20/18 19:00 Differential Comment See pathology report 12/21/18 07:00 Smudge Cells Present 12/20/18 19:00 Platelet Evaluation Normal (NORMAL) 12/20/18 19:00 PT 11.6 SECONDS (9.4-12.5) 12/20/18 18:40 INR 1.05 12/20/18 18:40 APTT 27.7 Seconds (26.9-38.3) 12/20/18 18:40 pO2 252 mm/Hg (30-55) H 12/20/18 18:40 VBG pH 7.44 (7.32-7.43) H 12/20/18 18:40 VBG pCO2 35.0 (40-60) L 12/20/18 18:40 VBG HCO3 23.8 mmol/l (21-28) 12/20/18 18:40 VBG Total CO2 24.9 mmol.L (22-28) 12/20/18 18:40 VBG O2 Sat (Calc) 100.3 % (40-65) H 12/20/18 18:40 VBG Base Excess 0.1 mmol/L (0.0-2.0) 12/20/18 18:40 VBG Potassium 4.7 mmol/L (3.6-5.2) 12/20/18 18:40 Sodium 142.0 mmol/L (132-148) 12/20/18 18:40 Chloride 110.0 mmol/L (98-107) H 12/20/18 18:40 Glucose 134 mg/dl (65-105) H 12/20/18 18:40 Lactate 1.0 mmol/L (0.7-2.1) 12/20/18 18:40 FiO2 21.0 % 12/20/18 18:40 Sodium 142 mmol/L (132-148) 12/22/18 07:36 Potassium 4.0 mmol/L (3.6-5.0) 12/22/18 07:36 Chloride 111 mmol/L (98-107) H 12/22/18 07:36 Carbon Dioxide 26 mmol/L (21-33) 12/22/18 07:36 Anion Gap 9 (10-20) L 12/22/18 07:36 BUN 10 mg/dL (7-21) 12/22/18 07:36 Creatinine 0.7 mg/dl (0.7-1.2) 12/22/18 07:36 Est GFR ( Amer) > 60 12/22/18 07:36 Est GFR (Non-Af Amer) > 60 12/22/18 07:36 Random Glucose 99 mg/dL (70-110) 12/22/18 07:36 Hemoglobin A1c 5.5 % (4.2-6.5) 12/20/18 23:20 Uric Acid 5.9 mg/dL (2.5-6.2) 12/21/18 08:00 Calcium 8.9 mg/dL (8.4-10.5) 12/22/18 07:36 Phosphorus 4.3 mg/dL (2.5-4.5) 12/22/18 07:36 Magnesium 2.0 mg/dL (1.7-2.2) 12/22/18 07:36 Total Bilirubin 1.1 mg/dL (0.2-1.3) 12/22/18 07:36 AST 28 U/L (14-36) 12/22/18 07:36 ALT 22 U/L (7-56) 12/22/18 07:36 Alkaline Phosphatase 99 U/L (38-126) 12/22/18 07:36 Lactate Dehydrogenase 424 U/L (333-699) 12/21/18 12:50 Total Creatine Kinase < 20 U/L (35-230) L 12/21/18 12:50 Troponin I < 0.01 ng/mL 12/21/18 12:50 Total Protein 6.2 g/dL (5.8-8.3) 12/22/18 07:36 Albumin 3.7 g/dL (3.0-4.8) 12/22/18 07:36 Globulin 2.6 gm/dL 12/22/18 07:36 Albumin/Globulin Ratio 1.4 (1.1-1.8) 12/22/18 07:36 Triglycerides 125 mg/dL (35-160) 12/20/18 18:00 Cholesterol 225 mg/dL (130-200) H 12/20/18 18:00 LDL Cholesterol Direct 149 mg/dL (0-129) H 12/20/18 18:00 HDL Cholesterol 40 mg/dL (29-60) 12/20/18 18:00 Lipase 40981 U/L (23-300) H 12/20/18 18:00 TSH 3rd Generation 0.75 mIU/mL (0.46-4.68) 12/20/18 23:20 Venous Blood Potassium 4.7 mmol/L (3.6-5.2) 12/20/18 18:40 Alcohol, Quantitative < 10 mg/dL (0-10) 12/20/18 23:20 Blood Type B POSITIVE 12/20/18 18:50 Blood Type Confirm B POSITIVE 12/20/18 20:02 Antibody Screen Negative 12/20/18 18:50 BBK History Checked No verified bt 12/20/18 18:50 - Hospital Course Hospital Course: Upon Admission: 88 year old female with PMHx HTN, CLL (recently diagnosed, not on chemo), COPD, Depression, HLD who presented to the ED with left sided chest pain at 1 pm today. In the ED, Vitals: Temp 98, HR 100, BP 151/73, RR 18, SaO2 98% (room air). Medical team evaluated the patient. She has left sided chest pain und erneath her breast with radiation to the back. She says that the pain started at rest, she was not exerting herself. She also had associated shortness of breath. However, upon arriving to the ED she says that her chest pain and shortness of breath has improved. Denies headache, fever, chills, nausea, vomiting, diarrhea, vision changes, bowel/bladder changes, numbness/tingling of the extremities. She said that she was recently diagnosed with CLL but is not on any chemotherapy. She denies any cardiac history. She has had a stress test in the past that was normal. Denies ever having an echocardiogram or a cardiac cath done before. She has no prior history of pancreatitis Hospital Course: Pt was evaluated for chest pain to r/o ACS. EKG showed no acute changes and trop onins were (-) x 3. Pt was also found to have markedly elevated WBC count with lymphocyte predominance. Pt has a known history of CLL, and her block operator- oncologist was made aware. [place] [address] [place] abd/pelvis revealed. Abd U/S: cholelithiasis. CT abd/pelvis: "evidence for non-necrotizing pancreatitis. Increasing lymphadenopathy" Pt was treated for pancreatitis. She was started on IVF, and started on pain control. Pt's diet was slowly advanced until tolerated. GI was consulted and all recs were appreciated. Elective outpatient cholecystectomy and possible MRI/EUS. Upon Discharge: Pt is feeling much better. She is tolerating her diet. Vital signs stable. She was instructed on medication compliance, outpatient followup and to return to ED with recurrence of symptoms or new symptoms. Discharge Exam - Head Exam Head Exam: NORMAL INSPECTION, NORMOCEPHALIC - Eye Exam Eye Exam: EOMI, Normal appearance Pupil Exam: NORMAL ACCOMODATION, PERRL - ENT Exam ENT Exam: Normal Exam - Neck Exam Neck exam: Normal Inspection - Cardiovascular Exam Cardiovascular Exam: REGULAR RHYTHM - GI/Abdominal Exam GI & Abdominal Exam: Normal Bowel Sounds - Rectal Exam Rectal Exam: NORMAL INSPECTION - Extremities Exam Extremities exam: normal inspection - Neurological Exam Neurological exam: Alert, CN II-XII Intact, Normal Gait, Oriented x3, Reflexes Normal - Psychiatric Exam Psychiatric exam: Normal Affect, Normal Mood - Skin Skin Exam: Dry, Intact, Normal Color, Warm Discharge Plan - Follow Up Plan Condition: STABLE Disposition: HOME/ ROUTINE Instructions: Preventing Falls in the Older Adult, [place] Diet, Gallstones (DC), Pancreatitis (DC) Additional Instructions: Please follow up with you primary care doctor, Dr. Montiel, within 3-5 days of discharge Please follow up with your Public Health Program Manager, Dr. Choi within 3-5 days of discharge Please follow up with your block operator-oncologist, Dr. Breen, within 3-5 days of discharge Please continue the medications that you were taking previously Please consume a bland diet, and start eating regular food as you can tolerate Please be aware that you have a condition named "Chronic Lymphocytic Leukemia" also known as "CLL" If your symptoms return, or you experience new symptoms, please return to the nearest emergency room Referrals: Kolton Breen MD [Medical Doctor] - Aamir Montiel MD [Family Provider] - Sung Mukherjee MD [Medical Doctor] - <Fredis Naik - Last Filed: 12/23/18 12:46> Provider - Provider Date of Admission: 12/20/18 21:40 Attending physician: Fredis Naik MD Consults: 12/20/18 21:26 Physician Consult Stat Comment: Consulting Provider: Kolton Breen Consulting Physician: Kolton Breen Reason for Consult: elevated WBC 12/20/18 23:40 Physician Consult Routine Comment: Consulting Provider: Yahaira Ramires Consulting Physician: Yahaira Ramires Reason for Consult: Gallstones on RUQ US, issa? 12/20/18 23:41 Physician Consult Routine Comment: Consulting Provider: Sung Mukherjee V Consulting Physician: Sung Mukherjee V Reason for Consult: consider gallstone pancreatitis Hospital Course - Lab Results Lab Results: Most Recent Lab Values WBC 81.8 10^3/uL (4.5-11.0) H* 12/22/18 07:36 RBC 3.96 10^6/uL (3.5-6.1) 12/22/18 07:36 Hgb 10.7 g/dL (12.0-16.0) L 12/22/18 07:36 Hct 36.0 % (36.0-48.0) 12/22/18 07:36 MCV 90.9 fl (80.0-105.0) 12/22/18 07:36 MCH 27.0 pg (25.0-35.0) 12/22/18 07:36 MCHC 29.7 g/dl (31.0-37.0) L 12/22/18 07:36 RDW 15.0 % (11.5-14.5) H 12/22/18 07:36 Plt Count 118 10^3/uL (120.0-450.0) L 12/22/18 07:36 MPV 10.3 fl (7.0-11.0) 12/22/18 07:36 Neut % (Auto) 3.5 % (50.0-68.0) L 12/22/18 07:36 Lymph % (Auto) 94.8 % (22.0-35.0) H 12/22/18 07:36 [place] % (Auto) 1.2 % (1.0-6.0) 12/22/18 07:36 Eos % (Auto) 0.3 % (1.5-5.0) L 12/22/18 07:36 Baso % (Auto) 0.2 % (0.0-3.0) 12/22/18 07:36 Lymph # (Auto) 77.6 (1.2-3.4) H 12/22/18 07:36 [place] # (Auto) 1.0 (0.1-0.6) H 12/22/18 07:36 Eos # (Auto) 0.2 (0.0-0.7) 12/22/18 07:36 Baso # (Auto) 0.16 K/mm3 (0.0-2.0) 12/22/18 07:36 Absolute Neuts (auto) 2.88 (1.4-6.5) 12/22/18 07:36 Neutrophils % (Manual) 7 % (50.0-70.0) L 12/20/18 19:00 Lymphocytes % (Manual) 86 % (22.0-35.0) H 12/20/18 19:00 Atypical Lymphs % 2 % (0.0-0.0) H 12/20/18 19:00 Monocytes % (Manual) 5 % (1.0-6.0) 12/20/18 19:00 Differential Comment See pathology report 12/21/18 07:00 Smudge Cells Present 12/20/18 19:00 Platelet Evaluation Normal (NORMAL) 12/20/18 19:00 PT 11.6 SECONDS (9.4-12.5) 12/20/18 18:40 INR 1.05 12/20/18 18:40 APTT 27.7 Seconds (26.9-38.3) 12/20/18 18:40 pO2 252 mm/Hg (30-55) H 12/20/18 18:40 VBG pH 7.44 (7.32-7.43) H 12/20/18 18:40 VBG pCO2 35.0 (40-60) L 12/20/18 18:40 VBG HCO3 23.8 mmol/l (21-28) 12/20/18 18:40 VBG Total CO2 24.9 mmol.L (22-28) 12/20/18 18:40 VBG O2 Sat (Calc) 100.3 % (40-65) H 12/20/18 18:40 VBG Base Excess 0.1 mmol/L (0.0-2.0) 12/20/18 18:40 VBG Potassium 4.7 mmol/L (3.6-5.2) 12/20/18 18:40 Sodium 142.0 mmol/L (132-148) 12/20/18 18:40 Chloride 110.0 mmol/L (98-107) H 12/20/18 18:40 Glucose 134 mg/dl (65-105) H 12/20/18 18:40 Lactate 1.0 mmol/L (0.7-2.1) 12/20/18 18:40 FiO2 21.0 % 12/20/18 18:40 Sodium 142 mmol/L (132-148) 12/22/18 07:36 Potassium 4.0 mmol/L (3.6-5.0) 12/22/18 07:36 Chloride 111 mmol/L (98-107) H 12/22/18 07:36 Carbon Dioxide 26 mmol/L (21-33) 12/22/18 07:36 Anion Gap 9 (10-20) L 12/22/18 07:36 BUN 10 mg/dL (7-21) 12/22/18 07:36 Creatinine 0.7 mg/dl (0.7-1.2) 12/22/18 07:36 Est GFR ( Amer) > 60 12/22/18 07:36 Est GFR (Non-Af Amer) > 60 12/22/18 07:36 Random Glucose 99 mg/dL (70-110) 12/22/18 07:36 Hemoglobin A1c 5.5 % (4.2-6.5) 12/20/18 23:20 Uric Acid 5.9 mg/dL (2.5-6.2) 12/21/18 08:00 Calcium 8.9 mg/dL (8.4-10.5) 12/22/18 07:36 Phosphorus 4.3 mg/dL (2.5-4.5) 12/22/18 07:36 Magnesium 2.0 mg/dL (1.7-2.2) 12/22/18 07:36 Total Bilirubin 1.1 mg/dL (0.2-1.3) 12/22/18 07:36 AST 28 U/L (14-36) 12/22/18 07:36 ALT 22 U/L (7-56) 12/22/18 07:36 Alkaline Phosphatase 99 U/L (38-126) 12/22/18 07:36 Lactate Dehydrogenase 424 U/L (333-699) 12/21/18 12:50 Total Creatine Kinase < 20 U/L (35-230) L 12/21/18 12:50 Troponin I < 0.01 ng/mL 12/21/18 12:50 Total Protein 6.2 g/dL (5.8-8.3) 12/22/18 07:36 Albumin 3.7 g/dL (3.0-4.8) 12/22/18 07:36 Globulin 2.6 gm/dL 12/22/18 07:36 Albumin/Globulin Ratio 1.4 (1.1-1.8) 12/22/18 07:36 Triglycerides 125 mg/dL (35-160) 12/20/18 18:00 Cholesterol 225 mg/dL (130-200) H 12/20/18 18:00 LDL Cholesterol Direct 149 mg/dL (0-129) H 12/20/18 18:00 HDL Cholesterol 40 mg/dL (29-60) 12/20/18 18:00 Lipase 18769 U/L (23-300) H 12/20/18 18:00 TSH 3rd Generation 0.75 mIU/mL (0.46-4.68) 12/20/18 23:20 Venous Blood Potassium 4.7 mmol/L (3.6-5.2) 12/20/18 18:40 Alcohol, Quantitative < 10 mg/dL (0-10) 12/20/18 23:20 Blood Type B POSITIVE 12/20/18 18:50 Blood Type Confirm B POSITIVE 12/20/18 20:02 Antibody Screen Negative 12/20/18 18:50 BBK History Checked No verified bt 12/20/18 18:50 Attending/Attestation - Attestation I have personally seen and examined this patient.: Yes I have fully participated in the care of the patient.: Yes I have reviewed all pertinent clinical information, including history, physical exam and plan: Yes Notes (Text): 12/23/18 12:44 attending note; Patient seen and examined with the resident. Patient is alert and awake. denies epigastric pain. tolerating liquid diet. Seen by GI yesterday. Denies any nausea, vomiting. Denies any fevers, chills. Patient is a 88 year old female with PMHx HTN, CLL (recently diagnosed, not on chemo), COPD, Depression, HLD is admitted for upper epigastric and left sided abdominal pain. 1.acute abdominal pain; CAT scan showed acute pancreatitis. lipase is elevated a 12,861. Treated with IV fluids and pain medication. Currently tolerating liquid diet. Advance to low-fat low-cholesterol diet. Currently denies any nausea, vomiting. GI evaluation appreciated. ultrasound showed gallstones. Surgery evaluation appreciated. Outpatient elective cholecystectomy recommended. 2. History of CLL; patient with chronically elevated white counts in 100s. Patient was recently evaluated at [facility]. Currently not on any treatment multiple lymph nodes secondary to lymphoma. Case discussed with Dr. Breen in detail. Needs follow-up as outpatient. 3. Atypical chest pain/mostly radiating from the upper epigastric region. Cardiac enzymes negative. Echocardiogram without significant abnormality. Follow-up with cardiology as outpatient . Patient will be discharged home . Upon discharge the patient will follow-up with PMD Dr. Montiel. Follow-up with GI Dr. Garcia for outpatient EUS . Follow-up with oncology Dr. Breen . Follow-up with surgery per PMD.
== END 2018-12-22 15:48 | disposition home or self-care (01) | DRG 439 ==
LOC: ED 15:53 → ERH 21:40 → 2RSO 12-21 01:42
PROVIDERS: ADMIT Internal Medicine; ATTEND Internal Medicine
DX: K85.10 Biliary acute pancreatitis without necrosis or infection (principal); C91.10 Chronic lymphocytic leukemia of B-cell type not having achieved remission; E87.5 Hyperkalemia; I10 Essential (primary) hypertension; E78.00 Pure hypercholesterolemia, unspecified; R07.89 Other chest pain; F32.9 Major depressive disorder, single episode, unspecified; E78.5 Hyperlipidemia, unspecified; J44.9 Chronic obstructive pulmonary disease, unspecified; Z87.891 Personal history of nicotine dependence; Z87.440 Personal history of urinary (tract) infections

== ENCOUNTER 2019-01-11 09:07 | Outpatient (CLI) | payer MEDICARE, BC | END 2019-01-11 09:08 | disposition home or self-care (01) | LOC: RAD 09:07 ==